=== PATIENT | male | born 1955 | race Caucasian/White ===

== ENCOUNTER 2019-02-23 10:56 | Day surgery (SDC) | payer SELFPAY ==
[~2019-02-23] VITALS: Ht 175.3 cm; Wt 78.2 kg
[2019-02-23 11:15] VITALS: BP 142/91
[2019-02-23] MEDS ORDERED: ATOR10TA9 PO (11:40)
[2019-02-23] MEDS ORDERED: ASPI81TA45 PO (11:41)
[2019-02-23 12:07] LABS: ANION GAP 7 mmol/L (5-15); CALCIUM 8.8 mg/dL (8.5-10.1); CHLORIDE 107 mmol/L (98-107); CREATININE 0.93 mg/dL (0.7-1.3)
[2019-02-23] MEDS ORDERED: MIDAZOLAM 1 MG/ML, 5ML ONE (12:17)
[2019-02-23] MEDS ORDERED: FENTANYL PF 100 MCG/2ML ONE (12:17)
[2019-02-23] MEDS ORDERED: VERAPAMIL 2.5 MG/ML, 2ML ONE (12:17)
[2019-02-23] MEDS ORDERED: BIVALIRUDIN 250 MG ONE (12:17)
[2019-02-23] MEDS ORDERED: LIDOCAINE-MPF 1%, 5ML ONE (12:18)
[2019-02-23] MEDS ORDERED: HEPARIN 1,000 UNITS/ML, 10ML ONE (12:18)
[2019-02-23] MEDS ORDERED: SODIUM CHLORIDE 0.9% 1,000 ML IV SCH (12:59)
== END 2019-02-23 17:02 | disposition home or self-care (01) ==
LOC: CACL 10:56
PROVIDERS: ATTEND Internal Medicine Cardiovascular Disease
DX: I25.10 Atherosclerotic heart disease of native coronary artery without angina pectoris (principal); E78.5 Hyperlipidemia, unspecified; Z72.89 Other problems related to lifestyle; I10 Essential (primary) hypertension
CPT/HCPCS: 36415; 80048; 93458; 99156; C1769; C1894; J1644; J2250; J3010; Q9967; J0583